=== PATIENT | male | born 1985 | race Caucasian/White ===

== ENCOUNTER 2018-08-03 19:59 | Emergency (ER) | payer MEDICAID, OTHER ==
[~2018-08-03] VITALS: Ht 170.2 cm; Wt 75.5 kg
[2018-08-03 20:21] VITALS: BP 143/76; PULSE 56; RESP 19; Ht 170.2 cm; Wt 75.5 kg
--- NOTE | 2018-08-03 22:08 | ERD ---
ER Documentation Chief Complaint Chief Complaint C/O LT MIDDLE BACK PAIN, WEAKNESS AND NOT FEELING WELL X5 DAYS HPI This is a 33-year-old otherwise healthy male presents complaining of feeling very shaky and tremulous. He states occasionally he feels short of breath and very anxious. No chest pain or palpitations. No alcohol smoking or drugs. No cardiac past medical history ROS All systems reviewed and are negative except as per history of present illness. Allergies Allergies: Coded Allergies: No Known Allergy (Unverified , 08/03/18) PMhx/Soc Medical and Surgical Hx: pt denies Medical Hx, pt denies Surgical Hx Hx Alcohol Use: Yes (occassionally) Hx Substance Use: No Hx Tobacco Use: No Smoking Status: Never smoker FmHx Family History: No diabetes Physical Exam Vitals Vital Signs Date Temp Pulse Resp B/P (MAP) Pulse Ox O2 O2 Flow FiO2 Time Delivery Rate 08/03/18 98.1 56 19 143/76 98 20:21 (98) Physical Exam Const: No acute distress Head: Atraumatic Eyes: Normal Conjunctiva ENT: Normal External Ears, Nose and Mouth. Neck: Full range of motion. No meningismus. Resp: Clear to auscultation bilaterally Cardio: Regular rate and rhythm, no murmurs Abd: Soft, non tender, non distended Results 24 hrs Laboratory Tests Test 08/03/18 21:23 Bedside Glucose 116 mg/dL Procedures/MDM Patient presents with signs and symptoms consistent with anxiety. He has no cardiac past medical history. His EKG is sinus bradycardia with a rate of [address] of [address] elevation or acute ischemic changes. Accu-Chek is normal. Prescription for Ativan given. Patient counseled regarding my diagnostic impression and care plan. Prior to discharge all questions answered. Pt agrees with treatment plan and understands strict return precautions. Pt is instructed to follow up with primary care provider within 24-48 hours. Precautionary instructions provided including instructions to return to the ER if not improving or for any worsening or changing symptoms or concerns. Departure Diagnosis: Primary Impression: Anxiety Condition: Stable RYAN PRAJAPATI PA-C August 03, 2018 22:08
[2018-08-03] MEDS ORDERED: LORA1TAB PO (22:09)
== END 2018-08-03 22:37 | disposition home or self-care (01) ==
LOC: FTE 19:59
DX: F41.9 Anxiety disorder, unspecified (principal)
CPT/HCPCS: 82962; 93005; Z7502